=== PATIENT | female | born 1995 | race Caucasian/White ===

== ENCOUNTER → 2022-10-01 | Outpatient (CLI) | payer MEDICAID ==
[~2022-10-01] MED LIST: CEPHALEXIN500 M1 PO; NORCO 325 MG-51 TA1 PO; ST. JOSEPH ASPI81 M1 PO; TYLENOL 325MG325 MG PO
== END ==
LOC: LAB 17:06
DX: Z20.822 Contact with and (suspected) exposure to COVID-19 (principal)

== ENCOUNTER 2022-10-06 01:25 | Emergency (ER) | payer MEDICAID ==
[~2022-10-06] VITALS: Wt 93.2 kg
[2022-10-06] MEDS ORDERED: TYLENOL 325MG325 MG PO (01:48)
[2022-10-06] MEDS ORDERED: ST. JOSEPH ASPI81 M1 PO (01:49)
[2022-10-06] MEDS ORDERED: CEPHALEXIN500 M1 PO (02:02)
[2022-10-06] MEDS ORDERED: NORCO 325 MG-51 TA1 PO (02:02)
[2022-10-06 02:18] VITALS: BP 140/86
== END 2022-10-06 02:18 | disposition home or self-care (01) ==
LOC: ED 01:25
DX: O99.891 Other specified diseases and conditions complicating pregnancy (principal); H66.93 Otitis media, unspecified, bilateral; Z28.310 Unvaccinated for COVID-19; Z3A.00 Weeks of gestation of pregnancy not specified

== ENCOUNTER 2022-11-28 18:34 | Observation (INO) | payer OTHER, MEDICAID ==
[~2022-11-28] VITALS: Ht 175.3 cm; Wt 90.9 kg
[2022-11-28] MEDS ORDERED: IBU800 M1 PO (18:45)
[2022-11-28] MEDS ORDERED: PRENATAL MULTI1 EAC3 PO (18:45)
[2022-11-28 19:05] LABS: BASO # 0.05 K/mm3 (0.02-0.10); EOS % 2.5 % (1.0-5.0); HEMATOCRIT 39.8 % (37.0-47.0); HEMOGLOBIN 13.1 g/dL (12.5-16.0); LYMPH# 1.12 K/mm3 (1.50-4.00); MEAN CELL VOLUME 85 fl (78-100); MEAN CORPUSCULAR HEMOGLOBIN 28 pg (27-31); MEAN CORPUSCULAR HGB CONC 33 g/dL (33-37); MEAN PLATELET VOLUME 9.9 fl (7.4-10.4); MONO # 0.51 K/mm3 (0.20-0.80); NEU # 9.81 K/mm3 (1.40-6.50); PLATELET COUNT 368 K/mm3 (130-400); RED CELL DISTRIBUTION WIDTH 13.3 % (11.5-14.5); WHITE BLOOD COUNT 11.8 K/mm3 (4.8-10.8)
[2022-11-28 19:14] LABS: ALBUMIN 3.9 g/dL (3.5-5.0); POTASSIUM 3.7 mmol/L (3.5-5.1)
[2022-11-28 19:17] LABS: TOTAL PROTEIN 7.2 g/dL (6.4-8.3)
[2022-11-28 19:18] LABS: TOTAL BILIRUBIN 0.4 mg/dL (0.2-1.2)
[2022-11-28 22:03] VITALS: BP 132/87
[2022-11-29 01:54] VITALS: BP 129/87
[2022-11-29 02:00] LABS: PH-URINE 5.5 (5.0 - 8.0); URINE APPEARANCE CLOUDY; URINE BILIRUBIN NEGATIVE (NEGATIVE); URINE COLOR YELLOW; URINE GLUCOSE NEGATIVE (NEGATIVE); URINE KETONE NEGATIVE (NEGATIVE); URINE NITRATE NEGATIVE (NEGATIVE); URINE PROTEIN(semi-quant) TRACE (NEGATIVE); URINE UROBILINOGEN NORMAL (NORMAL)
[2022-11-29 02:01] LABS: URINE BLOOD 250 ery/uL (NEGATIVE); URINE LEUKOCYTE ESTERASE 2+ (NEGATIVE)
[2022-11-29 02:02] LABS: URINE WBC 31-50 /hpf (0-3)
[2022-11-29 02:03] LABS: URINE MUCUS PRESENT (NOT PRESENT)
[2022-11-29 06:06] VITALS: BP 118/84
[2022-11-29 07:52] LABS: BASO # 0.05 K/mm3 (0.02-0.10); EOS # 0.27 K/mm3 (0.04-0.40); EOS % 2.3 % (1.0-5.0); HEMATOCRIT 38.5 % (37.0-47.0); HEMOGLOBIN 12.3 g/dL (12.5-16.0); LYMPH# 1.54 K/mm3 (1.50-4.00); MEAN CELL VOLUME 88 fl (78-100); MEAN CORPUSCULAR HEMOGLOBIN 28 pg (27-31); MEAN CORPUSCULAR HGB CONC 32 g/dL (33-37); MEAN PLATELET VOLUME 10.1 fl (7.4-10.4); MONO # 0.82 K/mm3 (0.20-0.80); NEU # 9.13 K/mm3 (1.40-6.50); PLATELET COUNT 302 K/mm3 (130-400); RED CELL DISTRIBUTION WIDTH 13.7 % (11.5-14.5); WHITE BLOOD COUNT 11.8 K/mm3 (4.8-10.8)
[2022-11-29 07:54] LABS: ALBUMIN 3.4 g/dL (3.5-5.0); POTASSIUM 4.4 mmol/L (3.5-5.1)
[2022-11-29 07:55] LABS: CALCIUM 8.6 mg/dL (8.3-10.5)
[2022-11-29 07:57] LABS: TOTAL PROTEIN 6.3 g/dL (6.4-8.3)
[2022-11-29 07:58] LABS: TOTAL BILIRUBIN 0.5 mg/dL (0.2-1.2)
[2022-11-29] MEDS ORDERED: CEPHALEXIN500 M1 PO (09:08)
[2022-11-29 10:15] VITALS: BP 137/83
== END 2022-11-29 10:40 | disposition home or self-care (01) ==
LOC: ED 18:34 → MED/SURG 19:34
PROVIDERS: ADMIT Family Medicine
DX: A41.9 Sepsis, unspecified organism (principal); N61.0 Mastitis without abscess; N64.4 Mastodynia; N39.0 Urinary tract infection, site not specified
CPT/HCPCS: G0378; J0696; J1885; J7030

== ENCOUNTER 2024-02-14 20:50 | Emergency (ER) | payer MEDICAID ==
[~2024-02-14 20:50] MED LIST changes: +ALPRAZolam 0.5 MG TAB PO ONE; +IBU800 M1 PO; +PRENATAL MULTI1 EAC3 PO
[2024-04-03 22:46] LABS: ACETAMINOPHEN < 1 ug/mL; ALBUMIN 4.4 g/dL (3.5-5.0); ALCOHOL IN-HOUSE < 10 mg/dL (<10); ALT/SGPT 35 U/L (0-55); AST-SGOT 57 U/L (5-34); CALCIUM 9.8 mg/dL (8.3-10.5); CARBON DIOXIDE 21 mmol/L (22-29); GLUCOSE 96 mg/dL (65-105); SODIUM 140 mmol/L (136-145); TOTAL BILIRUBIN 0.6 mg/dL (0.2-1.2); TOTAL PROTEIN 7.6 g/dL (6.4-8.3)
[2024-04-03 22:48] LABS: BASO # 0.05 K/mm3 (0.02-0.10); EOS # 0.04 K/mm3 (0.04-0.40); EOS % 0.3 % (1.0-5.0); HEMATOCRIT 44.4 % (37.0-47.0); HEMOGLOBIN 14.6 g/dL (12.5-16.0); LYMPH# 2.44 K/mm3 (1.50-4.00); MEAN CELL VOLUME 83 fl (78-100); MEAN CORPUSCULAR HEMOGLOBIN 27 pg (27-31); MEAN CORPUSCULAR HGB CONC 33 g/dL (33-37); MEAN PLATELET VOLUME 9.8 fl (7.4-10.4); MONO # 0.93 K/mm3 (0.20-0.80); NEU # 8.13 K/mm3 (1.40-6.50); PLATELET COUNT 432 K/mm3 (130-400); RED BLOOD COUNT 5.33 M/mm3 (4.10-5.30); RED CELL DISTRIBUTION WIDTH 13.5 % (11.5-14.5); WHITE BLOOD COUNT 11.6 K/mm3 (4.8-10.8)
[2024-04-03 22:52] LABS: PH-URINE 6.5 (5.0 - 8.0); URINE APPEARANCE CLEAR (CLEAR); URINE COLOR YELLOW (YELLOW); URINE GLUCOSE NEGATIVE (NEGATIVE); URINE PROTEIN(semi-quant) NEGATIVE (NEGATIVE)
[2024-04-03 22:53] LABS: URINE BILIRUBIN NEGATIVE (NEGATIVE); URINE BLOOD NEGATIVE (NEGATIVE); URINE KETONE 1+ (NEGATIVE); URINE LEUKOCYTE ESTERASE NEGATIVE (NEGATIVE); URINE NITRATE NEGATIVE (NEGATIVE); URINE WBC 0-1 /hpf (0-3)
[2024-04-03 22:54] LABS: URINE MUCUS PRESENT (NOT PRESENT)
== END 2024-02-15 10:50 ==
LOC: ED 20:50
PROVIDERS: Physician Assistant
DX: R45.851 Suicidal ideations (principal)

== ENCOUNTER → 2024-02-24 | Outpatient (REF) | payer MEDICAID ==
[~2024-02-24] MED LIST changes: -ALPRAZolam 0.5 MG TAB PO ONE
== END ==
LOC: LAB 11:31
DX: Z01.812 Encounter for preprocedural laboratory examination (principal)